=== PATIENT | male | born 1990 | race Caucasian/White ===

== ENCOUNTER 2024-11-21 08:44 | Emergency (ER) | payer MEDICAID ==
[~2024-11-21] VITALS: Ht 165.1 cm; Wt 70.0 kg
[2024-11-21 08:45] VITALS: O2SAT 98
[2024-11-21] MEDS: ONDANSETRON HCL 4MG/2ML INJ IV STA (09:05)
[2024-11-21] MEDS: KETOROLAC 30MG/ML VIAL IV STA (09:05)
[2024-11-21] MEDS: MORPHINE SULFATE 4 MG/ML INJ (FOR IV/IM USE) IV STA (09:05)
[2024-11-21 09:10] LABS: CLARITY URINE CLEAR (CLEAR); COLOR URINE YELLOW (YELLOW); GLUCOSE URINE NEGATIVE (NEGATIVE); KETONES URINE TRACE (NEGATIVE); LEUKOCYTE ESTERASE URINE NEGATIVE (NEGATIVE); NITRITE URINE NEGATIVE (NEGATIVE); OCCULT BLOOD URINE TRACE (NEGATIVE); PROTEIN URINE TRACE (NEGATIVE); SPECIFIC GRAVITY URINE 1.027 (1.005-1.030)
[2024-11-21 09:27] LABS: POTASSIUM 4.2 mEq/L (3.5-5.1)
[2024-11-21 09:28] LABS: BASOPHILS % 0.4 % (0.0-2.0); HEMATOCRIT. 49.6 % (42.0-52.0); HEMOGLOBIN. 16.2 g/dL (14.0-18.0); LYMPHOCYTES % 8.2 % (20.0-50.0); MEAN CORPUSCULAR HGB CONC 32.6 g/dL (31.0-37.0); MEAN CORPUSCULAR VOLUME 89.1 fL (80.0-94.0); MEAN PLATELET VOLUME 10.2 fl (7.4-10.4); MONOCYTES % 5.3 % (2.0-8.0); NEUTROPHILS % 86.1 % (40.0-76.0); PLATELET 209 x1000/uL (130-400); RED BLOOD CELL COUNT 5.57 mill/uL (4.7-6.1); RED CELL DISTRIBUTION WIDTH 13.6 % (11.6-14.6)
[2024-11-21 09:29] LABS: CALCIUM 9.9 mg/dL (8.7-10.4)
[2024-11-21 09:33] LABS: CREATININE 1.5 mg/dL (0.6-1.3)
[2024-11-21 09:43] LABS: SQUAMOUS EPITHELIAL CELL URINE 1+ /lpf (RARE/1+)
[2024-11-21 09:44] LABS: BACTERIA URINE NONE SEEN; RBC URINE 0-2 /hpf (0-2); WBC URINE 0-2 /hpf (0-2); YEAST URINE NONE SEEN
[2024-11-21] MEDS ORDERED: IBUP-2030 MT (10:53)
[2024-11-21] MEDS ORDERED: ONDA-239 PO (10:53)
[2024-11-21] MEDS ORDERED: OXYC-100 MT (10:53)
[2024-11-21] MEDS: OXYCODONE HCL/ACETAMINOPHEN 5/325MG TABLET PO ONE (11:08)
[2024-11-21 11:09] VITALS: BP 124/70; PULSE 76; RESP 18; TEMP 37.1; O2SAT 99
== END 2024-11-21 11:14 | disposition home or self-care (01) ==
LOC: ER 08:44
DX: N13.2 Hydronephrosis with renal and ureteral calculous obstruction (principal); J45.909 Unspecified asthma, uncomplicated
CPT/HCPCS: 99285; 74176; 96374; 96375; 80048; 81003; 83690; 85025; 36415; J1885; J2405; J2270